=== PATIENT | female | born 1965 | race Caucasian/White ===

== ENCOUNTER 2018-06-27 02:44 | Emergency (ER) | payer SELFPAY ==
[2018-06-27] MEDS ORDERED: NS 1,000 ML IV ONE (02:47)
--- NOTE | 2018-06-27 02:48 | EDPHY ---
H & P Time Seen by Provider: 06/27/18 02:48 HPI/ROS: HPI CHIEF COMPLAINT: Upper abdominal pain. HISTORY OF PRESENT ILLNESS: 53-year-old female, denies significant medical history presents emergency room with epigastric right upper quadrant abdominal pain. She does state it radiates to her back. Directly across her back from the epigastric region. Started around 9:00 p.m. It has been constant. It is now 3 o'clock in the morning. She has not had any vomiting. She did eat a fatty meal sauces tonight. Denies drug or alcohol use. Denies vomiting. Denies chest pain or shortness of breath. Pain does not go in her chest. Stays locally in her epigastric right upper quadrant region. Is focally tender in epigastric on exam. Past Medical History: Celiac disease Past Surgical History: Social History: Denies drugs alcohol tobacco. Family History: Noncontributory ROS REVIEW OF SYSTEMS: 10 Systems were reviewed and negative with the exception of the elements mentioned in the history of present illness. Exam Constitutional triage nursing summary reviewed, vital signs reviewed, awake/ alert. Eyes normal conjunctivae and sclera, EOMI, PERRLA. HENT normal inspection, atraumatic, moist mucus membranes, no epistaxis, neck supple/ no meningismus, no raccoon eyes. Respiratory clear to auscultation bilaterally, normal breath sounds, no respiratory distress, no wheezing. Cardiovascular rate normal, regular rhythm, no murmur, no edema, distal pulses normal. Gastrointestinal mild tender palpation epigastric,, no rebound, no guarding, normal bowel sounds, no distension, no pulsatile mass. Genitourinary no CVA tenderness. Musculoskeletal no midline vertebral tenderness, full range of motion, no calf swelling, no tenderness of extremities, no meningismus, good pulses, neurovascularly intact. Skin pink, warm, & dry, no rash, skin atraumatic. Neurologic awake, alert and oriented x 3, AAOx3, moves all 4 extremities equally, motor intact, sensory intact, CN II-XII intact, normal cerebellar, normal vision, normal speech. Psychiatric normal mood/affect. Heme/Lymph/Immune no lymphadenopathy. Differential diagnosis includes but is not limited to and in no particular order : Bowel obstruction, appendicitis, gallbladder disease, diverticulitis, colitis , enteritis, perforated viscus, gastritis, GERD, esophagitis, urinary tract infection, pyelonephritis, kidney stones Medical Decision Making: Plan for this patient IV establishment IV fluid bolus , GI cocktail and IV Pepcid to see if this improves her symptoms, EKG, troponin , ultrasound right upper quadrant, check lipase LFTs. Re-evaluate. Re-evaluation: EKG interpretation by me on record in [facility] system. Impression time of EKG 2:57 a.m., sinus rhythm rate of 72, without any signs of acute ischemia no ST elevation or ST depression no T-wave abnormalities. No prolonged intervals. Unremarkable nonischemic EKG. Patient is refusing the GI cocktail and IV Pepcid. Unable to tell this improves her symptoms. 0427: Patient re-evaluated she still has ongoing epigastric abdominal pain. She refused the GI cocktail and the Pepcid. However after further discussion with ongoing epigastric pain I have ordered another GI cocktail and IV Pepcid. She has agreed to take this. Additionally her ultrasound did not reveal anything acute. Plan will be for CT scan abdomen pelvis with IV contrast for further evaluation of abdominal pain. I have discussed this with her. Patient has declined IV fluids. Her lactic acid was noted to be a little bit high at 2.3. No evidence of sepsis. [id number]: I had a long discussion with the patient. She does feel better at this time. She received a GI cocktail and IV Pepcid. She does state the epigastric pain has improved. She reports to me she has had a lot of reflux type symptoms additionally often gets food stuck in takes a while to go down. I had a long discussion with her and I do recommend she follows up with GI about this. Her ultrasound here in emergency room is unremarkable for acute pathology The the patient CT scan abdomen pelvis with IV contrast does not help explain her epigastric right upper quadrant abdominal pain. However I suspect this is most likely gastritis versus GERD versus peptic ulcer disease. Also given that food is getting stuck do recommend she gets EGD with [facility]. She may have a stricture or soft diet is. Discussed this at length with her she states she will follow up with GI. I do recommend PPI or H2 leilani however she declined to take this medication. Additionally I went over CT results about her cervix as there is an abnormal fluid collection behind her cervix. I discussed this at length with her. I highly recommend she follows up with OBGYN over the next 2 weeks to have this evaluated. As it is concerning. I discussed at length with her about this. I will refer her to OBGYN. I will refer her to GI. I do recommend she refrain from eating spicy fatty greasy foods. Additionally takes antacid medication However she is adamant about not taking antacid medication. Return precautions discussed with the patient she understands return emergency room if develops worsening abdominal pain, fever, vomiting. Bloody stools. Follow-up GI as recommended OBGYN is recommended. Patient's troponin noted be negative EKG nonischemic. Source: Patient Constitutional: Initial Vital Signs Temperature (C) 36.5 C 06/27/18 02:55 Heart Rate 94 06/27/18 02:55 Respiratory Rate 18 06/27/18 02:55 Blood Pressure 134/91 H 06/27/18 02:55 O2 Sat (%) 96 06/27/18 02:55 O2 Delivery Mode Room Air Allergies/Adverse Reactions: gluten Allergy (Verified 06/27/18 02:55) pain meds Allergy (Uncoded 06/27/18 02:55) Home Medications: Medication Instructions Recorded NK [No Known Home Meds] 06/27/18 Medical Decision Making - Data Points Laboratory Results: Laboratory Results 06/27/18 03:08 06/27/18 03:43 06/27/18 06/27/18 06/27/18 03:43 03:43 03:43 WBC RBC Hgb Hct MCV MCH MCHC RDW Plt Count MPV Neut % (Auto) Lymph % (Auto) [place] % (Auto) Eos % (Auto) Baso % (Auto) Nucleat RBC Rel Count Absolute Neuts (auto) Absolute Lymphs (auto) Absolute Monos (auto) Absolute Eos (auto) Absolute Basos (auto) Absolute Nucleated RBC Immature Gran % Immature Gran # PT 11.7 SEC L SEC (12.0-15.0) INR 0.84 (0.83-1.16) APTT 28.1 SEC SEC (23.0-38.0) VBG Lactic Acid Turbidity Cancelled Sodium 141 mEq/L mEq/L Cancelled (135-145) Potassium 4.2 mEq/L mEq/L Cancelled (3.3-5.0) Chloride 105 mEq/L mEq/L Cancelled (97-110) Carbon Dioxide 24 mEq/l mEq/l Cancelled (22-31) Anion Gap 12 mEq/L mEq/L Cancelled (8-16) BUN 12 mg/dL mg/dL Cancelled (7-23) Creatinine 1.0 mg/dL mg/dL Cancelled (0.6-1.0) Estimated GFR 58 Cancelled Glucose 115 mg/dL H mg/dL Cancelled (70-100) Calcium 9.8 mg/dL mg/dL Cancelled (8.5-10.4) Total Bilirubin 0.3 mg/dL mg/dL Cancelled (0.1-1.4) Conjugated Bilirubin 0.1 mg/dL mg/dL Cancelled (0.0-0.5) Unconjugated Bilirubin 0.2 mg/dL mg/dL Cancelled (0.0-1.1) Icterus Index Cancelled AST 34 IU/L IU/L Cancelled (14-46) ALT 51 IU/L IU/L Cancelled (9-52) Alkaline Phosphatase 57 IU/L IU/L Cancelled (38-126) POC Troponin I Total Protein 7.4 g/dL g/dL Cancelled (6.3-8.2) Albumin 4.6 g/dL g/dL Cancelled (3.5-5.0) Lipase 146 IU/L IU/L Cancelled (23-300) Specimen Hemolysis Cancelled Urine Color Urine Appearance Urine pH Ur Specific [place] Urine Protein Urine Ketones Urine Blood Urine Nitrate Urine Bilirubin Urine Urobilinogen Ur Leukocyte Esterase Urine RBC Urine WBC Ur Epithelial Cells Urine Bacteria Urine Mucus Urine Glucose 06/27/18 06/27/18 06/27/18 03:20 03:16 03:08 WBC RBC Hgb Hct MCV MCH MCHC RDW Plt Count MPV Neut % (Auto) Lymph % (Auto) [place] % (Auto) Eos % (Auto) Baso % (Auto) Nucleat RBC Rel Count Absolute Neuts (auto) Absolute Lymphs (auto) Absolute Monos (auto) Absolute Eos (auto) Absolute Basos (auto) Absolute Nucleated RBC Immature Gran % Immature Gran # PT INR APTT VBG Lactic Acid Turbidity Sodium REJ Potassium REJ Chloride REJ Carbon Dioxide REJ Anion Gap REJ BUN REJ Creatinine REJ Estimated GFR REJ Glucose REJ Calcium REJ Total Bilirubin REJ Conjugated Bilirubin REJ Unconjugated Bilirubin REJ Icterus Index AST REJ ALT REJ Alkaline Phosphatase REJ POC Troponin I 0.00 ng/mL ng/mL (0.00-0.08) Total Protein REJ Albumin REJ Lipase REJ Specimen Hemolysis Urine Color YELLOW Urine Appearance MODERATELY TURBID Urine pH 7.0 (5.0-7.5) Ur Specific [place] 1.002 (1.002-1.030) Urine Protein NEGATIVE (NEGATIVE) Urine Ketones NEGATIVE (NEGATIVE) Urine Blood 1+ H (NEGATIVE) Urine Nitrate NEGATIVE (NEGATIVE) Urine Bilirubin NEGATIVE (NEGATIVE) Urine Urobilinogen NEGATIVE EU EU (0.2-1.0) Ur Leukocyte Esterase NEGATIVE (NEGATIVE) Urine RBC 1-3 /hpf /hpf (0-3) Urine WBC 1-3 /hpf /hpf (0-3) Ur Epithelial Cells 2+ /lpf H /lpf (NONE-1+) Urine Bacteria 2+ /hpf H /hpf (NONE SEEN) Urine Mucus TRACE /lpf /lpf (NONE-1+) Urine Glucose NEGATIVE (NEGATIVE) 06/27/18 06/27/18 06/27/18 03:08 03:08 03:08 WBC 10.01 10^3/uL H 10^3/uL (3.80-9.50) RBC 4.48 10^6/uL 10^6/uL (4.18-5.33) Hgb 14.4 g/dL g/dL (12.6-16.3) Hct 41.0 % % (38.0-47.0) MCV 91.5 fL fL (81.5-99.8) MCH 32.1 pg pg (27.9-34.1) MCHC 35.1 g/dL g/dL (32.4-36.7) RDW 12.2 % % (11.5-15.2) Plt Count 271 10^3/uL 10^3/uL (150-400) MPV 8.9 fL fL (8.7-11.7) Neut % (Auto) 62.6 % % (39.3-74.2) Lymph % (Auto) 26.4 % % (15.0-45.0) [place] % (Auto) 5.8 % % (4.5-13.0) Eos % (Auto) 3.9 % % (0.6-7.6) Baso % (Auto) 0.9 % % (0.3-1.7) Nucleat RBC Rel Count 0.0 % % (0.0-0.2) Absolute Neuts (auto) 6.27 10^3/uL 10^3/uL (1.70-6.50) Absolute Lymphs (auto) 2.64 10^3/uL 10^3/uL (1.00-3.00) Absolute Monos (auto) 0.58 10^3/uL 10^3/uL (0.30-0.80) Absolute Eos (auto) 0.39 10^3/uL 10^3/uL (0.03-0.40) Absolute Basos (auto) 0.09 10^3/uL 10^3/uL (0.02-0.10) Absolute Nucleated RBC 0.00 10^3/uL 10^3/uL (0-0.01) Immature Gran % 0.4 % % (0.0-1.1) Immature Gran # 0.04 10^3/uL 10^3/uL (0.00-0.10) PT REJ INR REJ APTT REJ VBG Lactic Acid 2.3 mmol/L H mmol/L (0.7-2.1) Turbidity Sodium Potassium Chloride Carbon Dioxide Anion Gap BUN Creatinine Estimated GFR Glucose Calcium Total Bilirubin Conjugated Bilirubin Unconjugated Bilirubin Icterus Index AST ALT Alkaline Phosphatase POC Troponin I Total Protein Albumin Lipase Specimen Hemolysis Urine Color Urine Appearance Urine pH Ur Specific [place] Urine Protein Urine Ketones Urine Blood Urine Nitrate Urine Bilirubin Urine Urobilinogen Ur Leukocyte Esterase Urine RBC Urine WBC Ur Epithelial Cells Urine Bacteria Urine Mucus Urine Glucose Medications Given: Discontinued Medications Al Hydroxide/Mg Hydroxide (Maalox Susp) 30 ml PO ONCE ONE Stop: 06/27/18 02:59 Last Admin: 06/27/18 03:12 Dose: Not Given Al Hydroxide/Mg Hydroxide (Maalox Susp) 30 ml PO ONCE ONE Stop: 06/27/18 04:28 Last Admin: 06/27/18 04:30 Dose: 30 ml Famotidine (Pepcid) 20 mg IVP EDNOW ONE Stop: 06/27/18 03:00 Last Admin: 06/27/18 03:12 Dose: Not Given Famotidine (Pepcid) 20 mg IVP EDNOW ONE Stop: 06/27/18 04:33 Last Admin: 06/27/18 04:33 Dose: 20 mg Hyoscyamine Sulfate (Levsin, Hyomax-Sl) 0.25 mg PO ONCE ONE Stop: 06/27/18 02:59 Last Admin: 06/27/18 03:12 Dose: Not Given Hyoscyamine Sulfate (Levsin, Hyomax-Sl) 0.25 mg PO ONCE ONE Stop: 06/27/18 04:28 Last Admin: 06/27/18 04:30 Dose: 0.25 mg Sodium Chloride (Ns) 1,000 mls @ 0 mls/hr IV EDNOW ONE; Wide Open PRN Reason: Protocol Stop: 06/27/18 02:48 Last Admin: 06/27/18 03:12 Dose: Not Given Lidocaine (Lidocaine 2% Viscous) 15 ml PO ONCE ONE Stop: 06/27/18 02:59 Last Admin: 06/27/18 03:12 Dose: Not Given Lidocaine (Lidocaine 2% Viscous) 15 ml PO ONCE ONE Stop: 06/27/18 04:28 Last Admin: 06/27/18 04:30 Dose: 15 ml Point of Care Test Results: Chemistry 06/27/18 03:16 POC Troponin I 0.00 ng/mL ng/mL (0.00-0.08) Departure - Departure Disposition: Home, Routine, Self-Care Clinical Impression: Esophagitis Abdominal pain Qualifiers: Abdominal location: epigastric Qualified Code(s): R10.13 - Epigastric pain Gastritis Qualifiers: Gastritis type: unspecified gastritis Chronicity: acute Gastritis bleeding: without bleeding Qualified Code(s): K29.00 - Acute gastritis without bleeding GERD (gastroesophageal reflux disease) Qualifiers: Esophagitis presence: with esophagitis Qualified Code(s): K21.0 - Gastro- esophageal reflux disease with esophagitis Condition: Good Instructions: Esophagitis (ED), Gastroesophageal Reflux Disease (ED) Additional Instructions: 1. I do recommend you take anti antacid medication 2. Please call GI make a follow-up appointment 3. Please call OBGYN make a follow-up appointment about the abnormal fluid behind her cervix. 4. You have been referred for both of these specialties 5. Return emergency room if develops worsening pain, shortness of breath, chest pain, fever, vomiting, bloody stools. Worsening of condition. Referrals: NONE *PRIMARY CARE P,. [Primary Care Provider] - As per Instructions Jamie Geronimo MD [Medical Doctor] - As per Instructions Brissa Sol MD [Medical Doctor] - As per Instructions
[2018-06-27] MEDS ORDERED: HYOSCYAMINE SULFATE 0.125 MG TAB PO ONE ×2 (02:58→04:27)
[2018-06-27] MEDS ORDERED: LIDOCAINE 2% VISCOUS 15 ML UDCUP PO ONE ×2 (02:58→04:27)
[2018-06-27] MEDS ORDERED: MAG HYDROX/AL HYDROX/SIMETH 30 ML UDCUP PO ONE ×2 (02:58→04:27)
[2018-06-27] MEDS ORDERED: FAMOTIDINE 20 MG/2 ML SDV IVP ONE ×2 (02:59→04:32)
[2018-06-27 03:25] LABS: PLATELET COUNT 271 10^3/uL (150-400)
[2018-06-27 04:02] LABS: INR 0.84 (0.83-1.16); PROTIME(PATIENT) 11.7 SEC (12.0-15.0)
[2018-06-27] MEDS ORDERED: IOPAMIDOL (ISOVUE-300) 100 ML BTL ONE (04:32)
[2018-06-27 05:55] VITALS: BP 123/89
--- NOTE | 2018-06-29 05:51 | CPEKG ---
Test Reason : OPEN Blood Pressure : / mmHG Vent. Rate : 072 BPM Atrial Rate : 073 BPM P-R Int : 150 ms QRS Dur : 093 ms QT Int : 419 ms P-R-T Axes : 010 005 053 degrees QTc Int : 459 ms Sinus rhythm Confirmed by Cortes Antony ([id number]) on 06/29/2018 5:50:53 AM Referred By: Confirmed By:Cortes Antony
== END 2018-06-27 05:54 | disposition home or self-care (01) ==
DX: K29.00 Acute gastritis without bleeding (principal); K21.0 Gastro-esophageal reflux disease with esophagitis; R10.13 Epigastric pain
CPT/HCPCS: 84484-PO; 96374; Q9967